=== PATIENT | male | born 1990 | race African-American/Black ===

== ENCOUNTER 2019-06-16 10:58 | Inpatient (IN) | payer OTHER ==
[2019-06-16 11:19] VITALS: BMI 25.2
--- NOTE | 2019-06-16 12:19 | HP ---
CIWA Score Nausea/Vomitin-No Nausea/No Vomiting Muscle Tremors: 1-None Visible, but [place] Anxiety: 1-Mildly Anxious Agitation: 1-Slight > Activity Paroxysmal Sweats: No Perspiration Orientation: 0-Oriented Tacttile Disturbances: 0-None Auditory Disturbances: 0-None Visual Disturbances: 0-None Headache: 0-None Present CIWA-Ar Total Score: 3 - Admission Criteria OASAS Guidelines: Admission for Medically Managed Detox: Requires at least one of the followin. CIWA greater than 12 2. Seizures within the past 24 hours 3. Delirium tremens within the past 24 hours 4. Hallucinations within the past 24 hours 5. Acute intervention needed for co occurring medical disorder 6. Acute intervention needed for co occurring psychiatric disorder 7. Severe withdrawal that cannot be handled at a lower level of care (continued vomiting, continued diarrhea, abnormal vital signs) requiring intravenous medication and/or fluids 8. Admitting History and Physical - Admission Chief Complaint: i am here for rehab from alcohol,narijuana and k2 History of Present Illness: this 29 years old male with alcohol,marijuana and ks2 abused,seeking rehab, first time to this facility, last detox 2018 in [facility], history of injury with abrasion of left face 4 days ago bipolar disorder,schizophrenia nicotine dependence weight loss 40 lbs History Source: Patient Limitations to Obtaining History: No Limitations - Past Medical History Psych: Yes: Bipolar, Schizophrenia Dermatology: Yes: Other (abrasion of left facial area 4 days ago) - Smoking History Have you smoked in the past 12 months: Yes Aproximately how many cigarettes per day: 20 - Alcohol/Substance Use Hx Alcohol Use: Yes History of Substance Use: reports: Cocaine, Marijuana - Social History Usual Living Arrangement: Yes: Other (homeless) History of Recent Travel: No Admission ROS [facility] Chief Complaint: i am here for rehab from alcohol,cocaine,marijuana Allergies/Adverse Reactions: Allergies Allergy/AdvReac Type Severity Reaction Status Date / Time No Known Allergies Allergy Verified 06/16/19 11:06 History of Present Illness: this 29 years old male with alcohol,cocaine and marijuana abused,seeking rehab, first time to the facility, homeless,nicotine dependence,unemployed, denied seizure denied syncope bipolar disorder,schizophrenia abrasion left face 4 days ago weight loss Exam Limitations: No Limitations - Ebola screening Have you traveled outside of the country in the last 21 days: No Have you had contact with anyone from an Ebola affected area: No Do you have a fever: No - Review of Systems Constitutional: Loss of Appetite, Malaise, Unintentional Wgt. Loss EENT: reports: Other (abrasionof left facial area) Respiratory: reports: No Symptoms reported Cardiac: reports: No Symptoms Reported GI: reports: No Symptoms Reported : reports: No Symptoms Reported Musculoskeletal: reports: No Symptoms Reported Integumentary: reports: No Symptoms Reported Neuro: reports: No Symptoms reported Endocrine: reports: No Symptoms Reported Hematology: reports: No Symptoms Reported Psychiatric: reports: No Sypmtoms Reported, Judgement Intact, Mood/Affect Appropiate, Orientated x3, other (bipolar disorder,schizophrenia) Other Systems: Reviewed and Negative Patient History - Patient Medical History Hx Anemia: No Hx Asthma: No Hx Chronic Obstructive Pulmonary Disease (COPD): No Hx Cancer: No Hx Cardiac Disorders: No Hx Congestive Heart Failure: No Hx Hypertension: No Hx Hypercholesterolemia: No Hx Pacemaker: No HX Cerebrovascular Accident: No Hx Seizures: No Hx Dementia: No Hx Diabetes: No Hx Gastrointestinal Disorders: No Hx Liver Disease: No Hx Genitourinary Disorders: No Hx Sexually Transmitted Disorders: No Hx Renal Disease (ESRD): No Hx Thyroid Disease: No Hx Human Immunodeficiency Virus (HIV): No (last 2019 negative) Hx Hepatitis C: No Hx Depression: No Hx Suicide Attempt: Yes (jumped off the train 2 years ago) Hx Bipolar Disorder: Yes (non compliance with medicatkion) Hx Schizophrenia: Yes (non compliance with medication) Other Medical History: no suicidal,no homicidal - Patient Surgical History Past Surgical History: No - PPD History Previous Implant?: Yes Documented Results: Negative w/o proof Implanted On Prior [facility] Admission?: No PPD to be Administered?: Yes - Smoking Cessation Smoking history: Current every day smoker Have you smoked in the past 12 months: Yes Aproximately how many cigarettes per day: 20 Hx Chewing Tobacco Use: No Initiated information on smoking cessation: Yes 'Breaking Loose' booklet given: 06/16/19 - Substance & Tx. History Hx Alcohol Use: Yes Hx Substance Use: Yes Substance Use Type: Alcohol, Cocaine, Marijuana Hx Substance Use Treatment: Yes ([facility]) - Substances abused K2/Spice Substance route: Smoking Frequency: 1-3 times last 30 days Amount used: 2 sticks Age of first use: 21 Date of last use: 06/09/19 Marijuana/Hashish Substance route: Smoking Frequency: Daily Amount used: 1 joint Age of first use: 14 Date of last use: 06/16/19 Crack Substance route: Smoking Frequency: Daily Amount used: 3 bags Age of first use: 22 Date of last use: 06/14/19 Alcohol Substance route: Oral Frequency: 3-6 times per week Amount used: 3 beers of 12 ozs Age of first use: 14 Date of last use: 06/13/19 Admission Physical Exam [facility] - Vital Signs Vital Signs: Vital Signs - 24 hr 06/16/19 11:06 Temperature 98.5 F Pulse Rate 88 Respiratory 18 Rate Blood Pressure 143/87 - Physical General Appearance: Yes: No Apparent Distress HEENTM: Yes: Normal ENT Inspection, Normocephalic, TOM, Pharynx Normal ( abrasion of left facial area) Respiratory: Yes: Lungs Clear, Normal Breath Sounds, No Respiratory Distress Neck: Yes: Within Normal Limits, Supple, Trachea in good position Breast: Yes: Within Normal Limits Cardiology: Yes: Within Normal Limits, Regular Rhythm, Regular Rate, S1, S2 Abdominal: Yes: Within Normal Limits, Normal Bowel Sounds, Non Tender, Flat, Soft Genitourinary: Yes: Within Normal Limits Back: Yes: Within Normal Limits Musculoskeletal: Yes: Within Normal Limits Extremities: Yes: Within Normal Limits 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 (7) Abrasion Status: Acute Cleared for Admission [facility] - Detox or Rehab Claeared for Rehab Admission: Yes Breathalyzer - Breathalyzer Breathalyzer: 0 Urine Drug Screen - Test Device Lot number: [id number] Expiration date: 01/14/21 - Control Is test valid?: Yes - Results Drug screen NEGATIVE: No Urine drug screen results: THC-Marijuana, BLACK-Cocaine Inpatient Rehab Admission - Rehab Decision to Admit Inpatient rehab admission?: Yes - Initial Determination Are CD services needed?: Yes Free of communicable disease: Yes Not in need of hospitalization: Yes - Rehab Admission Criteria Previous failed treatment: Yes Poor recovery environment: Yes Comorbidities: Yes Lacks judgement: No Patient is meeting Inpatient Rehab admission criteria:: Yes
[2019-06-16] MEDS ORDERED: ACETAMINOPHEN 325 MG TABLET (FP) PO PRN (12:35)
[2019-06-16] MEDS ORDERED: P-EPHED 60MG/TRIPROLIDI 2.5MG TABLET PO PRN (12:35)
[2019-06-16] MEDS ORDERED: hydrOXYzine PAMOATE 25 MG CAPSULE (FP) PO PRN (12:35)
[2019-06-16] MEDS ORDERED: MENTHOL/PHENOL 1 EACH UD MM PRN (12:35)
[2019-06-16] MEDS ORDERED: guaiFENesin 200 MG/10 ML 10 ML UNIT-DOSE CUPS PO PRN (12:35)
[2019-06-16] MEDS ORDERED: MAGNESIUM CITRATE 300 ML BOTTLE PO PRN (12:35)
[2019-06-16] MEDS ORDERED: LOPERAMIDE HCL 2 MG CAPSULE PO PRN (12:35)
[2019-06-16] MEDS ORDERED: IBUPROFEN 400 MG TABLET (FP) PO PRN (12:35)
[2019-06-16] MEDS ORDERED: MAGNESIUM HYDROX 2400MG/30ML ORAL SUSPENSION 30 ML CUP PO PRN (12:35)
[2019-06-16] MEDS ORDERED: MAG HYDROX/AL HYDROX/SIMETH 30 ML UNIT-DOSE CUP PO PRN (12:35)
[2019-06-16 14:44] LABS: HEMATOCRIT 42.3 % (35.4-49); HEMOGLOBIN 13.9 GM/dL (11.7-16.9); MCH 26.2 pg (25.7-33.7); MCHC 32.9 g/dl (32.0-35.9); MEAN CELL VOLUME 79.8 fl (80-96); MEAN PLT VOLUME 7.9 fl (7.5-11.1); PLATELET COUNT 349 K/MM3 (134-434); RDW 14.7 % (11.9-15.9); WHITE BLOOD COUNT 6.9 K/mm3 (4.0-10.0)
[2019-06-16 14:51] LABS: ALBUMIN 3.6 g/dl (3.4-5.0); BILIRUBIN,TOTAL 0.5 mg/dL (0.2-1); BLOOD UREA NITROGEN 12.2 mg/dL (7-18); CALCIUM 8.9 mg/dL (8.5-10.1); CREATININE 0.7 mg/dL (0.55-1.3); POTASSIUM 4.3 mmol/L (3.5-5.1); TOT PROT 6.8 g/dl (6.4-8.2)
[2019-06-16] MEDS ORDERED: TUBERCULIN PPD 5 TU/0.1ML VIAL ID ONE (15:11)
--- NOTE | 2019-06-16 15:13 | EKG ---
Test Reason : Blood Pressure : / mmHG Vent. Rate : 069 BPM Atrial Rate : 069 BPM P-R Int : 140 ms QRS Dur : 088 ms QT Int : 398 ms P-R-T Axes : 021 073 064 degrees QTc Int : 426 ms NORMAL SINUS RHYTHM EARLY REPOLARIZATION NORMAL ECG NO PREVIOUS ECGS AVAILABLE Confirmed by MD Jj, Alireza ([id number]) on 06/16/2019 3:13:21 PM Referred By: Confirmed By:Alireza Gardner MD
[2019-06-16] MEDS: NICOTINE 21 MG/24 HOURS TOPICAL PATCH TD SCH (15:16)
[2019-06-16] MEDS: NICOTINE POLACRILEX 2 MG GUM BUC PRN (15:16)
[2019-06-16] MEDS: BACITRACIN 15 GM TUBE TOPICAL OINTMENT TP SCH ×2 (15:17→21:12)
--- NOTE | 2019-06-16 16:58 | CONSULT ---
[facility] Psychiatric Consult - Data Date of interview: 06/16/19 Admission source: [facility] Identifying data: First visit to [facility] and direct admission from [facility] to [address] for this 29 y/o AA male self-referred for rehabilitation treatment ([facility]RIK issues : alcohol, cannabis/K2, cocaine, nicotine). Patient is single, no dependents, homeless, unemployed and supported on SSI benefits. Substance Abuse History: Discussed with the patient. Details in current [facility] report as follows : Smoking history: Current every day smoker. Have you smoked in the past 12 months: Yes. Aproximately how many cigarettes per day: 20. Hx Chewing Tobacco Use: No. Initiated information on smoking cessation: Yes. ' Breaking Loose' booklet given: 06/16/19. - Substance & Tx. History. Hx Alcohol Use: Yes. Hx Substance Use: Yes. Substance Use Type: Alcohol, Cocaine , Marijuana. Hx Substance Use Treatment: Yes ([facility] 2018). - Substances abused. K2/Spice. Substance route: Smoking. Frequency: 1-3 times last 30 days. Amount used: 2 sticks. Age of first use: 21. Date of last use: 06/09/19. Marijuana/Hashish. Substance route: Smoking. Frequency : Daily. Amount used: 1 joint. Age of first use: 14. Date of last use: . Crack. Substance route: Smoking. Frequency: Daily. Amount used: 3 bags. Age of first use: 22. Date of last use: 06/14/19. Alcohol. Substance route: Oral. Frequency: 3-6 times per week. Amount used: 3 beers of 12 ozs. Age of first use: 14. Date of last use: 06/13/19 Medical History: Patient endorses good general health. Psychiatric History: Patient admits to a history of multiple psychiatric hospitalizations ([facility], [facility], [facility], [facility], [facility]). Mr Reyes states that he has been diagnosed with " bipolar disorder and schizophrenia." He reports past treatment with lithium, seroquel, buspar and haloperidol (decanoate ). Patient indicates that he is affiliated with a mental health clinic, [facility], in [facility]. He also reports total non-adherence to medications for at least one month. Patient presents with a recent history (two years ago) of a suicide attempt via jumping on train tracks. Physical/Sexual Abuse/Trauma History: Not discussed. Patient declines. Additional Comment: Urine drug screen results: THC-Marijuana, BLACK-Cocaine. Noted. Mental Status Exam - Mental Status Exam Alert and Oriented to: Place, Person Cognitive Function: Impaired (somnolent during the interview) Patient Appearance: Unkempt, Disheveled Mood: Withdrawn Affect: Blunted Patient Behavior: Sedated (mildly sedated), Fatigued, Cooperative Speech Pattern: Delayed, Slurred Voice Loudness: Mildly Soft/Quiet Thought Process: Goal Oriented Thought Disorder: Bizarre Hallucinations: Denies Suicidal Ideation: Denies Homicidal Ideation: Denies Insight/Judgement: Poor (as evidenced by substance abuse and non adherence to medications ) Sleep: Fair Appetite: Good Gait/Station: Normal Psychiatric Findings - Problem List ([place] 1, 2,3) (1) Alcohol use disorder Current Visit: Yes Status: Chronic (2) Cannabis dependence Current Visit: Yes Status: Chronic (3) Cocaine dependence Current Visit: Yes Status: Chronic (4) Marijuana dependence Current Visit: Yes Status: Chronic (5) Nicotine dependence Current Visit: Yes Status: Chronic (6) Schizophrenia Current Visit: Yes Status: Chronic Comment: As per self-report. (7) Non-compliance Current Visit: Yes Status: Chronic - Initial Treatment Plan Initial Treatment Plan: Psychoeducation. Sleep hygiene. AA meetings. In view of patient's current sedated state (moderate), will not resume psychotropic medications at this time. Recommend observation for the next 24 hours and psychiatric re-evaluation.
[2019-06-16] MEDS: THIAMINE HCL 100 MG TABLET (FP) PO SCH (21:12)
[2019-06-16] MEDS: MELATONIN 5 MG TABLETS PO PRN (21:12)
[2019-06-17 10:22] LABS: PH,URINE 5.5 (5.0-8.0); URINE APPEARANCE CLEAR; URINE BILIRUBIN NEGATIVE (NEGATIVE); URINE COLOR YELLOW; URINE GLUCOSE (UA) NEGATIVE (NEGATIVE); URINE KETONE NEGATIVE (NEGATIVE); URINE LEUK ESTERASE NEGATIVE (NEGATIVE); URINE NITRITE NEGATIVE (NEGATIVE); URINE PROTEIN NEGATIVE (NEGATIVE)
[2019-06-17] MEDS: NICOTINE 21 MG/24 HOURS TOPICAL PATCH TD SCH (10:24)
[2019-06-17] MEDS: PRENATAL VITAMINS W/ FOLIC ACID TABLET (FP) PO SCH (10:24)
[2019-06-17] MEDS: BACITRACIN 15 GM TUBE TOPICAL OINTMENT TP SCH ×2 (10:24→21:17)
[2019-06-17] MEDS ORDERED: FLU VACCINE QUAD 60 MCG/0.5 ML (MDV 19-20) IM ONE (12:00)
[2019-06-17] MEDS: busPIRone HCL 10 MG TABLET (FP) PO SCH ×2 (15:35→21:15)
--- NOTE | 2019-06-17 15:45 | PN ---
Psychiatric Progress Note Vital Signs: Vital Signs Period Temp Pulse Resp BP Sys/Marie Pulse Ox Last 24 Hr 98.3 F 63 18-18 141/81 Date of Session: 06/17/19 Chief Complaint:: " I feel anxious. i need my medications." HPI: Patient admitted to [facility] for alcohol, cocaine, marijuana and cocaine dependence co-morbid Schizophrenia. ROS: Patient is anxious but cooperative. Current Medications: Active Medications Generic Name Dose Route Start Last Admin Trade Name Freq PRN Reason Stop Dose Admin Acetaminophen 650 mg 06/16/19 12:35 Tylenol - PO Q4H PRN FEVER Al Hydroxide/Mg Hydroxide 30 ml 06/16/19 12:35 Mylanta Oral Suspension - PO Q6H PRN DYSPEPSIA Bacitracin 1 applic 06/16/19 12:45 06/17/19 10:24 Bacitracin - TP Not Given BID PORTIA Buspirone HCl 10 mg 06/17/19 15:30 06/17/19 15:35 Buspar - PO 10 mg TID PORTIA Administration Eucalyptus/Menthol/Phenol/Sorbitol 1 each 06/16/19 12:35 Cepastat Lozenge - MM Q4H PRN SORE THROAT Guaifenesin 10 ml 06/16/19 12:35 Robitussin - PO Q6H PRN COUGH Hydroxyzine Pamoate 50 mg 06/17/19 15:37 Vistaril - PO Q4H PRN AGITATION Ibuprofen 400 mg 06/16/19 12:35 Motrin - PO Q6H PRN Pain level 4-6 Loperamide HCl 4 mg 06/16/19 12:35 Imodium - PO Q6H PRN DIARRHEA Magnesium Citrate 300 ml 06/16/19 12:35 Citroma - PO Q48H PRN CONSTIPATION Magnesium Hydroxide 30 ml 06/16/19 12:35 Milk Of Magnesia - PO DAILY PRN CONSTIPATION Melatonin 5 mg 06/16/19 22:00 06/16/19 21:12 Melatonin PO 5 mg HS PRN Administration INSOMNIA Nicotine 21 mg 06/16/19 12:45 06/17/19 10:24 Nicoderm Patch - TD Not Given DAILY PORTIA Nicotine Polacrilex 2 mg 06/16/19 12:35 06/16/19 15:16 Nicorette Gum - BUC 2 mg Q2H PRN Administration NICOTINE REPLACEMENT RX Multivit/Folic Acid/Iron 1 tab 06/17/19 10:00 06/17/19 10:24 Vitamins ([facility]) - PO Not Given DAILY PORTIA Pseudoephedrine/Triprolidine 1 combo 06/16/19 12:35 Actifed - PO TID PRN NASAL CONGESTION Thiamine HCl 100 mg 06/16/19 22:00 06/16/19 21:12 Vitamin B1 - PO 100 mg HS PORTIA Administration Medication(s) Change(s): Yes. Current Side Effect: No Lab tests ordered: No Lab tests reviewed: Yes Provider note:: Patient seen by Dr. Scott. Dr. Scott note read and appreciated. Patient with a history of schizophrenia. He reports being off PO medications for one month but states that he received the haldol decanoate at [facility] four days ago. Patient unsure of the dose of haldol decanoate he received. Mr. Reyes reports receiving lithium 300mg TID + Seroquel 450mg HS + Buspar 30mg TID + Haldol decanoate injection. Reports most recently receiving medications PO medications last month. States that he [facility] and from [facility] called at [phone]. Unable to get in contact with staff. Patient's mother ( Ava) contacted with patient's permission at [phone]. Unable to reach patient's mother. Message left with call back number. Will contact patient's mother and [facility] tomorrow. Patient is presently anxious and complaining of feeling jittery. He denies auditory/visual hallucinations. Will order Seroquel 100mg HS + Buspar 10mg TID + Vistaril 50mg q4h. Recommendation: Obtain Collateral information. Total face to face time:: 25 Mental Status Exam - Mental Status Exam Alert and Oriented to: Time, Place, Person Cognitive Function: Fair Patient Appearance: Well Groomed Mood: Anxious, Irritable Affect: Mood Congruent Patient Behavior: Fatigued, Cooperative Speech Pattern: Clear Voice Loudness: Normal Thought Process: Goal Oriented Thought Disorder: Not Present Hallucinations: Denies Suicidal Ideation: Denies Homicidal Ideation: Denies Insight/Judgement: Poor Sleep: Poorly Appetite: Fair Muscle strength/Tone: Normal Gait/Station: Normal Psychiatric Treatment Plan - Problem List (1) Alcohol use disorder Current Visit: Yes (2) Cannabis dependence Current Visit: Yes (3) Cocaine dependence Current Visit: Yes (4) Marijuana dependence Current Visit: Yes (5) Schizophrenia Current Visit: Yes Comment: As per self-report.
[2019-06-17] MEDS: hydrOXYzine PAMOATE 25 MG CAPSULE (FP) PO PRN ×2 (16:11→19:42)
--- NOTE | 2019-06-17 18:13 | PN ---
[facility] Progress Note Note: Patient is first time admission to rehab for alcohol, THC and K2. S/B psych today. Labs reviewed. Continue rehab. Laboratory Tests 06/16/19 06/16/19 06/16/19 12:35 12:50 12:50 WBC 6.9 RBC 5.30 Hgb 13.9 Hct 42.3 MCV 79.8 L MCH 26.2 MCHC 32.9 RDW 14.7 Plt Count 349 MPV 7.9 Sodium 141 Potassium 4.3 Chloride 109 H Carbon Dioxide 27 Anion Gap 5 L BUN 12.2 Creatinine 0.7 Est GFR (CKD-EPI)AfAm 148.85 Est GFR (CKD-EPI)NonAf 128.43 Random Glucose 114 H Calcium 8.9 Total Bilirubin 0.5 AST 14 L ALT 24 Alkaline Phosphatase 59 Total Protein 6.8 Albumin 3.6 Urine Color Urine Appearance Urine pH Ur Specific [place] Urine Protein Urine Glucose (UA) Urine Ketones Urine Blood Urine Nitrite Urine Bilirubin Urine Urobilinogen Ur Leukocyte Esterase RPR Titer Nonreactive HIV 1&2 Antibody Screen HIV P24 Antigen 06/16/19 06/17/19 12:50 07:50 WBC RBC Hgb Hct MCV MCH MCHC RDW Plt Count MPV Sodium Potassium Chloride Carbon Dioxide Anion Gap BUN Creatinine Est GFR (CKD-EPI)AfAm Est GFR (CKD-EPI)NonAf Random Glucose Calcium Total Bilirubin AST ALT Alkaline Phosphatase Total Protein Albumin Urine Color Yellow Urine Appearance Clear Urine pH 5.5 Ur Specific [place] 1.012 Urine Protein Negative Urine Glucose (UA) Negative Urine Ketones Negative Urine Blood Negative Urine Nitrite Negative Urine Bilirubin Negative Urine Urobilinogen 1.0 Ur Leukocyte Esterase Negative RPR Titer HIV 1&2 Antibody Screen Negative HIV P24 Antigen Negative
[2019-06-17] MEDS: MELATONIN 5 MG TABLETS PO PRN (21:15)
[2019-06-17] MEDS ORDERED: QUEtiapine FUMARATE 100 MG TABLET (FP) PO SCH (22:00)
[2019-06-17] MEDS: THIAMINE HCL 100 MG TABLET (FP) PO SCH (22:02)
[2019-06-18] MEDS: busPIRone HCL 10 MG TABLET (FP) PO SCH ×3 (07:54→23:54)
[2019-06-18] MEDS: NICOTINE 21 MG/24 HOURS TOPICAL PATCH TD SCH (11:34)
[2019-06-18] MEDS: BACITRACIN 15 GM TUBE TOPICAL OINTMENT TP SCH ×2 (11:34→23:53)
[2019-06-18] MEDS: PRENATAL VITAMINS W/ FOLIC ACID TABLET (FP) PO SCH (11:34)
--- NOTE | 2019-06-18 11:49 | PN ---
[facility] Progress Note Note: Psychiatric nurse practitioner note: 11:30-Photonics Engineer [facility] [phone] but policy writer was unsuccessful in speaking to someone. Photonics Engineer then contacted patient's mother Ava @[phone] and was able to speak to patient's mother. As per mother , patient did receive his Decanoate injection a few days ago at [facility]. Mother unsure of the medication he received. Patient's mother then stated that the other medications his takes by mouth are for hypertension. Patient's mother was in the taxi while speaking to policy writer and asked policy writer to call her back in a few minutes as she wanted to obtain the contact number to the registered nurse who is aware of Mr. Reyes medications. Photonics Engineer called patient's mother again after ten minutes but was unable to get in contact with her. Patient aware of interaction with mother (permission given to policy writer to contact patient's mother). Patient also informed policy writer that he has Tarun ( RN from Intensive mobile team) work number in his personal property. Will continue to attempt to obtain collateral information. 16:00- Photonics Engineer able to speak to patient's mother (Ava) who was able to provide policy writer with Brandee's ( [facility]) work office number @ [phone]. Patient gave policy writer permission to contact staff at [facility]. Photonics Engineer able to speak to Brandee. As per Brandee patient is followed by the Intensive Mobile treatment team at [facility]. States that patient has a diagnosis of Schizophrenia and used to accept haldol but is now on Invega Sustenna. As per Brandee he should have received his first dose of Invega Sustenna 234mg over the weekend at [facility]. He will then be receiving Invega Sustenna 136mg going forward on a monthly basis. As per Brandee patient used to accept lithium, seroquel and other psychotropic medications but is now only on Invega Sustenna. She states that he used to receive lithium and other psychotropic medications when he was admitted to other facilities. For now policy writer will lower seroquel dose. Will d/c seroquel 100mg and will order seroquel 50mg as patient reports feeling fatigue and is having difficulty getting up in the morning. Will also continue buspar 10mg TID for anxiety as patient states it is effective. Case discussed with ACCOUNTS PAYABLE TECHNICIAN Cecilia Oscar on [facility]. Patient's RN on the Intensive mobile treatment is Tarun and Psychiatric Nurse Practitioner is Joseph Johns. Patient updated with the information provided by Brandee and stated that he feels better now. Brandee also stated that she is interested in speaking to [facility]. Multiple attempts made to have a conference call with patient and social psychologist but attempt was unsuccessful. Time spent on case: 60 Minutes
[2019-06-18] MEDS: hydrOXYzine PAMOATE 25 MG CAPSULE (FP) PO PRN ×2 (11:59→17:22)
[2019-06-18] MEDS: NICOTINE POLACRILEX 2 MG GUM BUC PRN (14:55)
[2019-06-18 19:10] VITALS: BP 164/81; PULSE 79; TEMP 98.6
--- NOTE | 2019-06-18 19:15 | PN ---
[facility] Progress Note Note: Patient was seen and evaluated in the triage room on . He is agitated, crying uncontrollably and expressed to the nurse, Jer that he feels like he wants to jump off the russ. Attempts to reach [facility] psychiatrists unsuccessfully. Patient is being transferred to [facility] for evaluation of his suicidal ideation and thoughts. Vital Signs Temperature 98.6 F 06/18/19 19:09 Pulse Rate 79 06/18/19 19:09 Respiratory Rate 16 06/18/19 19:09 Blood Pressure 164/81 06/18/19 19:09 O2 Sat by Pulse Oximetry (%) Laboratory Last Values WBC 6.9 K/mm3 (4.0-10.0) 06/16/19 12:35 RBC 5.30 M/mm3 (4.00-5.60) 06/16/19 12:35 Hgb 13.9 GM/dL (11.7-16.9) 06/16/19 12:35 Hct 42.3 % (35.4-49) 06/16/19 12:35 MCV 79.8 fl (80-96) L 06/16/19 12:35 MCH 26.2 pg (25.7-33.7) 06/16/19 12:35 MCHC 32.9 g/dl (32.0-35.9) 06/16/19 12:35 RDW 14.7 % (11.9-15.9) 06/16/19 12:35 Plt Count 349 K/MM3 (134-434) 06/16/19 12:35 MPV 7.9 fl (7.5-11.1) 06/16/19 12:35 Sodium 141 mmol/L (136-145) 06/16/19 12:50 Potassium 4.3 mmol/L (3.5-5.1) 06/16/19 12:50 Chloride 109 mmol/L (98-107) H 06/16/19 12:50 Carbon Dioxide 27 mmol/L (21-32) 06/16/19 12:50 Anion Gap 5 MMOL/L (8-16) L 06/16/19 12:50 BUN 12.2 mg/dL (7-18) 06/16/19 12:50 Creatinine 0.7 mg/dL (0.55-1.3) 06/16/19 12:50 Est GFR (CKD-EPI)AfAm 148.85 06/16/19 12:50 Est GFR (CKD-EPI)NonAf 128.43 06/16/19 12:50 Random Glucose 114 mg/dL (74-106) H 06/16/19 12:50 Calcium 8.9 mg/dL (8.5-10.1) 06/16/19 12:50 Total Bilirubin 0.5 mg/dL (0.2-1) 06/16/19 12:50 AST 14 U/L (15-37) L 06/16/19 12:50 ALT 24 U/L (13-61) 06/16/19 12:50 Alkaline Phosphatase 59 U/L (45-117) 06/16/19 12:50 Total Protein 6.8 g/dl (6.4-8.2) 06/16/19 12:50 Albumin 3.6 g/dl (3.4-5.0) 06/16/19 12:50 Urine Color Yellow 06/17/19 07:50 Urine Appearance Clear 06/17/19 07:50 Urine pH 5.5 (5.0-8.0) 06/17/19 07:50 Ur Specific [place] 1.012 (1.010-1.035) 06/17/19 07:50 Urine Protein Negative (NEGATIVE) 06/17/19 07:50 Urine Glucose (UA) Negative (NEGATIVE) 06/17/19 07:50 Urine Ketones Negative (NEGATIVE) 06/17/19 07:50 Urine Blood Negative (NEGATIVE) 06/17/19 07:50 Urine Nitrite Negative (NEGATIVE) 06/17/19 07:50 Urine Bilirubin Negative (NEGATIVE) 06/17/19 07:50 Urine Urobilinogen 1.0 mg/dL (0.2-1.0) 06/17/19 07:50 Ur Leukocyte Esterase Negative (NEGATIVE) 06/17/19 07:50 RPR Titer Nonreactive (NONREACTIVE) 06/16/19 12:50 HIV 1&2 Antibody Screen Negative 06/16/19 12:50 HIV P24 Antigen Negative 06/16/19 12:50 Action: Transfer patient to [facility] for Psychiatric evaluation via ambulance
[2019-06-18] MEDS ORDERED: QUEtiapine FUMARATE 100 MG TABLET (FP) PO SCH (22:00)
[2019-06-18] MEDS: THIAMINE HCL 100 MG TABLET (FP) PO SCH (23:54)
== END 2019-06-19 | DRG 772 ==
LOC: YASAS 10:58 → Y3W 12:37
PROVIDERS: ADMIT Neuromusculoskeletal Medicine & OMM; ATTEND Neuromusculoskeletal Medicine & OMM
PROC: HZ42ZZZ Group Counseling for Substance Abuse Treatment, Cognitive-Behavioral (ICD-10-PCS; principal; 2019-06-16)
DX: F10.20 Alcohol dependence, uncomplicated (principal); F14.20 Cocaine dependence, uncomplicated; F12.20 Cannabis dependence, uncomplicated; F17.210 Nicotine dependence, cigarettes, uncomplicated; F20.9 Schizophrenia, unspecified; F31.9 Bipolar disorder, unspecified; R45.851 Suicidal ideations; S00.81XA Abrasion of other part of head, initial encounter; X58.XXXA Exposure to other specified factors, initial encounter; Y93.9 Activity, unspecified; Y92.9 Unspecified place or not applicable; Z91.19 Patient's noncompliance with other medical treatment and regimen; Z91.5 Personal history of self-harm
CPT/HCPCS: 36415; 80053; 81003; 85027; 86593; 87389; 93005; 93010; G0008; Q2036